=== PATIENT | male | born 1960 | race Caucasian/White ===

== ENCOUNTER 2021-06-16 21:12 | Emergency (ER) | payer MEDICAID ==
[~2021-06-16] VITALS: Ht 182.9 cm; Wt 73.9 kg
[2021-06-16 21:12] VITALS: BP_SYST 118
[2021-06-16] MEDS ORDERED: BUSP10TA3 PO (21:50)
[2021-06-16] MEDS ORDERED: CYAN100010 PO (21:53)
[2021-06-16] MEDS ORDERED: DOCU250C14 PO (22:33)
[2021-06-16] MEDS ORDERED: LACT10SO6 PO (22:34)
[2021-06-16] MEDS ORDERED: NEU400 PO (22:39)
[2021-06-16] MEDS ORDERED: LORA-259 PO (22:41)
[2021-06-16] MEDS ORDERED: MAGN400T10 PO (22:42)
[2021-06-16] MEDS ORDERED: [UNRECOGNIZED DRUG - CODE] PO (22:45)
[2021-06-16] MEDS ORDERED: MULT-1089 PO (22:46)
[2021-06-16] MEDS ORDERED: ANT30 PO (22:49)
[2021-06-16] MEDS ORDERED: POLY17PO4 PO (22:50)
[2021-06-16] MEDS ORDERED: PRO40 PO (22:52)
[2021-06-16] MEDS ORDERED: SUCR1TAB78 PO (22:53)
[2021-06-16] MEDS ORDERED: TRAM50TA PO (22:54)
[2021-06-16] MEDS ORDERED: THIA100T70 PO (22:55)
--- NOTE | 2021-06-16 23:02 | NUR ---
Medication reconciliation completed with information provided by [facility]. Any prior medication reconciliation on file was reviewed and corrected.
--- NOTE | 2021-06-16 23:35 | NUR ---
DR. SANDERS AT BEDSIDE FOR EVALUATION.
[2021-06-16] MEDS ORDERED: OXYCODONE/ACETAMINOPHEN *10*mg/325 mg TABLET PO ONE (23:45)
--- NOTE | 2021-06-17 | NUR ---
Patient to ER bed 2 to gown for evaluation. Side rails up.
--- NOTE | 2021-06-17 00:10 | NUR ---
PATIENT AAOX4 BIB BLS FROM [facility] C/O NECK PAIN RADIATING TO LOWER BACK WITH BILATERAL LEG NUMBNESS. PT STATED HE HAS HARDWARE ON SPINE. VSS. CURRENTLY STATING 10/10 ON THE PAIN SCALE.
--- NOTE | 2021-06-17 00:34 | NUR ---
PT TAKEN TO CT SCAN VIA GURNEY BY RADIOLOGY STAFF.
[2021-06-17] MEDS ORDERED: ACET1TAB23 PO (02:07)
--- NOTE | 2021-06-17 03:12 | NUR ---
Patient resting quietly. No acute distress noted. Vital signs within normal range.
[2021-06-17 04:03] VITALS: BP_SYST 113
--- NOTE | 2021-06-17 04:04 | NUR ---
Patient given written and verbal discharge instructions and verbalizes understanding. DR. MARILYN LUIS MD discussed with patient the results and treatment provided. Patient in stable condition. ID arm band removed. Rx of TYLENOL #3 given. Patient educated on pain management and to follow up with PMD. Pain Scale 0/10. Opportunity for questions provided and answered. Medication side effect fact sheet provided. PATIENT PICKED UP BY [facility] VIA GURNEY TO BE TAKEN BACK TO [facility].
== END 2021-06-17 04:04 | disposition home or self-care (01) ==
LOC: SED 21:12
DX: M54.2 Cervicalgia (principal); Z88.6 Allergy status to analgesic agent; Z91.013 Allergy to seafood; Z79.899 Other long term (current) drug therapy
CPT/HCPCS: 72125-TC; 76376; 93005; 99284